=== PATIENT | male | born 1990 | race Caucasian/White ===

== ENCOUNTER 2017-03-31 16:19 | Emergency (ER) | payer OTHER ==
[~2017-03-31] VITALS: Ht 180.3 cm; Wt 67.3 kg
[2017-03-31] MEDS ORDERED: SYMBICORT60 INHALAT IH (16:39)
[2017-03-31] MEDS ORDERED: ADVAIR 100/501 DISK IH (16:39)
[2017-03-31 17:05] LABS: HEMATOCRIT 40.3 % (38.0-50.0); MCH 30.8 PG (29.0-34.0); MCHC 34.2 G/DL (30.0-36.0); MEAN PLAT.VOLUME 9.8 uM^3 (9.0-12.4); PLATELET COUNT 245 K/uL (156-360); RBC DIS.WIDTH-CV 12.4 % (11.8-14.6); RBC DIS.WIDTH-SD 40.8 % (39-53); RED BLOOD COUNT 4.48 M/uL (4.00-5.50); WHITE BLOOD COUNT 8.5 K/uL (4.1-10.2)
[2017-03-31 17:18] LABS: CHLORIDE 109 mEq/L (99-109); POTASSIUM 3.9 mEq/L (3.7-5.4); SODIUM 139 mEq/L (136-147)
[2017-03-31 17:20] LABS: GLUCOSE 112 mg/dL (70-99)
[2017-03-31 17:21] LABS: ANION GAP 7 MEQ/L (2-14)
[2017-03-31 17:23] LABS: GFR ESTIMATE (CALCULATED) > 59 mL/min/; SERUM ETHYL ALCOHOL < 10 mg/dL
[2017-03-31 17:25] LABS: UREA NITROGEN (BUN) 12 mg/dL (9-23)
[2017-03-31 17:27] LABS: SALICYLATE < 5.0 MG/DL (15-30)
[2017-03-31] MEDS ORDERED: LEXAPRO10 MG PO (18:32)
[2017-03-31 19:02] VITALS: BP 145/59
== END 2017-03-31 19:03 | disposition home or self-care (01) ==
LOC: EME 16:19
PROVIDERS: Emergency Medicine
DX: F43.21 Adjustment disorder with depressed mood (principal); F32.9 Major depressive disorder, single episode, unspecified; F17.200 Nicotine dependence, unspecified, uncomplicated
CPT/HCPCS: 80048; 85027; 90839; 99281; 99285; G0480